=== PATIENT | male | born 1970 | race Caucasian/White ===

== ENCOUNTER 2023-01-27 11:22 | Emergency (ER) | payer OTHER ==
[~2023-01-27] VITALS: Ht 180.3 cm; Wt 118.8 kg
--- OUTSIDE RECORDS SUMMARY | 2023-01-27 11:30 | XMS ---
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 - Patient with suicidal and/or homicidal ideations eloped. - Patient eloped with IV in place. Details: Patient LWBS CRITERIA MET - [facility] - 2 Visits in 30 Days CARE PROVIDERS -Dom- [facility] PHONE: [phone] Mina has no Care Guidelines for this patient. Alecia VISIT COUNT (12 MO.) 2 [facility] TOTAL 2 NOTE: Visits indicate total known visits. ED/UCC VISIT TRACKING (12 MO.) 01/27/2023 11:22 [facility] TYPE: Emergency COMPLAINT: - EAR PAIN 12/29/2022 16:05 [facility] TYPE: Emergency COMPLAINT: - EAR PROBLEM INPATIENT VISIT TRACKING (12 MO.) No inpatient visits to display in this time frame [id number]
[2023-01-27] MEDS ORDERED: CEFDINIR300 MG PO (13:53)
[2023-01-27 13:58] VITALS: BP 154/95
== END 2023-01-27 13:58 | disposition home or self-care (01) ==
LOC: ED 11:22
DX: H65.91 Unspecified nonsuppurative otitis media, right ear (principal)
CPT/HCPCS: 70450; 99283-25

== ENCOUNTER 2023-08-03 13:43 | Emergency (ER) | payer BC ==
[~2023-08-03] VITALS: Ht 180.3 cm; Wt 127.2 kg
[~2023-08-03 13:43] MED LIST: CEFDINIR300 MG PO
[2023-08-03 13:58] LABS: BASOPHILS 0.4 % (0-2); EOSINOPHILS 0.2 % (0-6); HEMATOCRIT 48.4 % (35.0-50.0); HEMOGLOBIN 16.5 g/dL (12.0-18.0); LYMPHOCYTES 19.3 % (24-44); MCH 31.2 (27-36); MCHC 34.2 g/dl (30-36); MCV 91.5 fl (81-99); MONOCYTES 6.1 % (0-12); PLATELET COUNT 283 K/uL (140-440); RBC 5.29 M/ul (4.3-5.7); RDW 13.2 (10.5-15.0)
[2023-08-03] MEDS ORDERED: ASPIRIN 81 MG CHEW PO ONE (14:00)
[2023-08-03 14:16] LABS: ALBUMIN 4.4 g/dL (3.4-5.0); ALBUMIN/GLOBULIN RATIO 1.33 (1.1-2.4); ANION GAP 14.6 (7-21); BILIRUBIN, TOTAL 0.6 ng/dL (0.2-1.0); BUN/CREATININE RATIO 9.92 (6.0-28.6); CALCIUM 9.3 mg/dL (8.5-10.1); CREATININE, SERUM 1.41 mg/dL (0.70-1.30); MAGNESIUM 1.9 mg/dL (1.8-2.4); POTASSIUM 3.6 mmol/L (3.5-5.1); PROTEIN, TOTAL 7.7 g/dL (6.4-8.2)
[2023-08-03 16:33] VITALS: BP 140/82
--- NOTE | 2023-08-04 18:31 | EKG ---
[facility] [address] [place] [address] Signed Sinus tachycardia with premature ventricular complexes or fusion complexes Possible Left atrial enlargement Nonspecific ST abnormality Abnormal ECG When compared with ECG of 03-AUG-2023 13:47, (Unconfirmed) fusion complexes are now present premature ventricular complexes are now present Confirmed by ELSA CH MD ([id number]) on 08/04/2023 6:31:36 PM Electronically Signed By: ELSA CH 08/04/23 1831 PATIENT NAME: JEN YE Mani Electrocardiogram DATE OF : 74 PHYSICIAN: ELSA CH REPORT #: [id number] REPORT IS CONFIDENTIAL AND NOT TO BE RELEASED WITHOUT AUTHORIZATION
--- NOTE | 2023-08-06 08:59 | EKG ---
[facility] [address] [place], [place] [address] Signed EKG completed, results pending confirmation PATIENT NAME: JEN YE JR Electrocardiogram DATE OF : 74 PHYSICIAN: PRELIMINARY REPORT #: [id number] REPORT IS CONFIDENTIAL AND NOT TO BE RELEASED WITHOUT AUTHORIZATION
== END 2023-08-03 16:33 | disposition home or self-care (01) ==
LOC: ED 13:43
PROVIDERS: Emergency Medicine
DX: I49.3 Ventricular premature depolarization (principal); E86.0 Dehydration
CPT/HCPCS: 36415; 71045; 80053; 83735; 84484; 85025; 93005; 93010; 99285-25

== ENCOUNTER 2023-08-15 11:18 | Emergency (ER) | payer BC ==
[~2023-08-15] VITALS: Ht 180.3 cm; Wt 120.3 kg
--- OUTSIDE RECORDS SUMMARY | 2023-08-15 11:23 | XMS ---
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 - Patient eloped before treatment completed. - Patient with suicidal and/or homicidal ideations eloped. Details: Patient LWBS CRITERIA MET - [facility] - 2 Visits in 30 Days CARE PROVIDERS -Dom- [facility] PHONE: [phone] Mina has no Care Guidelines for this patient. Alecia VISIT COUNT (12 MO.) 4 [facility] TOTAL 4 NOTE: Visits indicate total known visits. ED/UCC VISIT TRACKING (12 MO.) 08/15/2023 11:18 [facility] TYPE: Emergency COMPLAINT: - EAR PROBLEM 08/03/2023 13:44 [facility] TYPE: Emergency COMPLAINT: - HEART ISSUES DIAGNOSES: - Dehydration - Palpitations - Ventricular premature depolarization 01/27/2023 11:22 [facility] TYPE: Emergency COMPLAINT: - EAR PAIN DIAGNOSES: - Otalgia, right ear - Unspecified nonsuppurative otitis media, right ear 12/29/2022 16:05 [facility] TYPE: Emergency COMPLAINT: - EAR PROBLEM INPATIENT VISIT TRACKING (12 MO.) No inpatient visits to display in this time frame [id number]
[2023-08-15] MEDS ORDERED: AMOXICILLIN500 M1 PO (12:01)
[2023-08-15] MEDS ORDERED: TETRACAINE HCL 0.5% 4 ML BTL OD SCH (12:15)
[2023-08-15 12:17] VITALS: BP 126/92
== END 2023-08-15 12:15 | disposition home or self-care (01) ==
LOC: ED 11:18
DX: H66.93 Otitis media, unspecified, bilateral (principal); H71.91 Unspecified cholesteatoma, right ear
CPT/HCPCS: 99282